=== PATIENT | male | born 1970 | race Caucasian/White ===

== ENCOUNTER 2023-11-22 11:10 | Emergency (ER) | payer SELFPAY ==
[2023-11-22] MEDS: Doxycycline Monohydrate 100 MG Cap PO ONE (12:05)
== END 2023-11-22 12:13 | disposition home or self-care (01) ==
LOC: JD.ED 11:10
DX: E11.621 Type 2 diabetes mellitus with foot ulcer (principal); L97.529 Non-pressure chronic ulcer of other part of left foot with unspecified severity; R03.0 Elevated blood-pressure reading, without diagnosis of hypertension
CPT/HCPCS: 99282; A9270